=== PATIENT | female | born 1980 | race African-American/Black ===

== ENCOUNTER 2017-01-30 12:16 | Emergency (ER) | payer BC, OTHER ==
[~2017-01-30] VITALS: Ht 182.9 cm; Wt 113.4 kg
[~2017-01-30 12:16] MED LIST: NKM
[2017-01-30 12:45] VITALS: BP 113/65
--- NOTE | 2017-01-30 13:15 | Emergency Room Report ---
History of Present Illness General Chief Complaint: Pain Source: Patient Present Illness HPI 36-year-old female presents to emergency Department complaining of 9/10 in severity localized pain, swelling and instability of the right knee. Patient denies fall states she had a history of meniscal surgery and when she was getting up from sitting position felt a pop in the knee and had sharp pain and was knee was "stuck" pt states pain is exacerbated with bending, and straightening the leg provides some relief. Patient currently has a knee wrap on to state that she has an appointment strategy specialist on Saturday. However she wants to make sure she has enough anti-inflammatory medications to keep the swelling down. Patient also wants evaluation for major injury. Denies numbness tingling or loss of sensation or gross motor movements of the extremities, incontinence of bowel or bladder. Denies CP, Palpitations, LOC, AMS , dizziness, Changes in Vision, Sensation, paresthesias, or a sudden severe headache. Allergies: Coded Allergies: No Known Allergies (Unverified , 06/29/16) Patient History Past Medical History: see triage record Past Surgical History: none Pertinent Family History: none Last Menstrual Period: a week ago Now: No Immunizations: UTD Reviewed Nursing Documentation: PMH: Agreed, PSxH: Agreed Nursing Documentation-PMH Past Medical History: No History, Except For History Of Psychiatric Problem: Yes - Anxiety Review of Systems All Other Systems: negative except mentioned in HPI Physical Exam Vital Signs Date Time Temp Pulse Resp B/P Pulse Ox O2 Delivery O2 Flow Rate FiO2 01/30/17 12:45 98.8 16 113/65 100 Room Air 01/30/17 12:45 93 Sp02 EP Interpretation: reviewed, normal General Appearance: no apparent distress, alert, GCS 15, non-toxic Head: normocephalic, atraumatic Eyes: bilateral eye PERRL, bilateral eye normal inspection ENT: hearing grossly normal, normal pharynx, no angioedema, normal voice Neck: full range of motion, supple/symm/no masses Respiratory: chest non-tender, lungs clear, normal breath sounds, speaking full sentences Cardiovascular #1: regular rate, rhythm, no edema Rectal: deferred Musculoskeletal: back normal, normal range of motion, no calf tenderness, swelling - right lateral knee swelling., tender - anterior lateral righ tknee ttp, with palpable swelling, negative anterior and posterior drawer sign, no increased laxity of the joint however exam is limited due to pain. Neurologic: alert, oriented x3, responsive, motor strength/tone normal, sensory intact, speech normal Psychiatric: judgement/insight normal, memory normal, mood/affect normal, no suicidal/homicidal ideation Skin: normal color, no rash, warm/dry, well hydrated Medical Decision Making PA Attestation Dr. Simpson is my supervising Physician whom patient management has been discussed with. Diagnostic Impression: Primary Impression: Knee effusion, right Additional Impression: Right knee sprain Qualified Codes: S83.91XA - Sprain of unspecified site of right knee, initial encounter ER Course 36-year-old female presents to emergency Department complaining of 9/10 in severity localized pain, swelling and instability of the right knee. Patient denies fall states she had a history of meniscal surgery and when she was getting up from sitting position felt a pop in the knee and had sharp pain and was unable to bear weight. Patient currently has a knee wrap on to state that she has an appointment strategy specialist on Saturday. However she wants to make sure she has enough anti-inflammatory medications to keep the swelling down. Patient also wants evaluation for major injury. Ddx considered but are not limited to Fracture, dislocation, contusion, Sprain/ Strain/Spasm, Epidural abscess, Neoplastic mets. Vital signs: are WNL, pt. is afebrile H&PE are most consistent with knee effusion, and sprain. ORDERS: - X-ray Right Knee 3 views - negative for fx, Dislocation, or significant soft tissue injury, per preliminary read in ED by Dr. Simpson ED INTERVENTIONS: - 600mg IBU PO -Knee immobilizer Splint applied to the right knee by mold tooling technician. Pt. remains neurovascularly intact. - Pt. is provided with crutches. - pt has appt. on Saturday with strategy specialist , d/w pt. MRI is recommended. DISCHARGE: At this time pt. is stable for d/c to home. Will provide printed patient care instructions, and any necessary prescriptions. Care plan and follow up instructions have been discussed with the patient prior to discharge. Last Vital Signs Date Time Temp Pulse Resp B/P Pulse Ox O2 Delivery O2 Flow Rate FiO2 01/30/17 12:45 98.8 93 16 113/65 100 Room Air Disposition: HOME, SELF-CARE Condition: Stable Scripts Meloxicam* (MELOXICAM*) 15 Mg Tablet 15 MG PO DAILY for 15 Days, #15 TAB Prov: Elizabeth Bruce 01/30/17 Departure Forms: Return to Work Return to Work Date: Feb 05, 2017 Work Restrictions: No Heavy Lifting, No Prolonged Standing, Desk Work Only Return to Full Activity: Feb 12, 2017 Patient Instructions: Knee Effusion, [id number], Knee Sprain, [id number] Additional Instructions: Take medications as directed. Follow up with PCP in 3-5 days , Recommend aircraft structural repair mechanic follow up Return sooner to ED if new symptoms occur, or current symptoms become worse. Do not drink alcohol, drive, or operate heavy machinery while taking as this may cause drowsiness. - Please note that this Emergency Department Report was dictated using [employer] technology software, occasionally this can lead to erroneous entry secondary to interpretation by the dictation equipment. Elizabeth Bruce Jan 30, 2017 13:15
[2017-01-30] MEDS ORDERED: MELOXICAM15 MG PO (14:03)
[2017-01-30 14:45] VITALS: BP 113/65
--- NOTE | 2017-01-30 15:57 | Diagnostic Imaging Report ---
Indication: PAIN Technique: 3 views of the right knee Comparison: None Findings:On the AP view, a small ossific density projects in the intercondylar notch, not definitely visible on other images. There is a very questionable osteochondral defect of the medial femoral condyle immediately adjacent to this, but this is not for certain. No other evidence of fracture. No dislocation. No suprapatellar effusion Impression:Findings concerning for small osteochondral fracture fragment,, of uncertain origin. MRI may be useful to clarify if clinically indicated Findings discussed by phone with Dr. Hayward in the emergency room at the time of interpretation
== END 2017-01-30 14:45 | disposition home or self-care (01) ==
LOC: EMR 13:18
DX: M25.461 Effusion, right knee (principal); S83.91XA Sprain of unspecified site of right knee, initial encounter; X58.XXXA Exposure to other specified factors, initial encounter; Y93.9 Activity, unspecified; Y92.9 Unspecified place or not applicable
CPT/HCPCS: 29530; 99283

== ENCOUNTER 2020-04-16 21:08 | Emergency (ER) | payer BC, OTHER ==
[~2020-04-16] VITALS: Ht 180.3 cm; Wt 127.0 kg
[~2020-04-16 21:08] MED LIST changes: +MELOXICAM15 MG PO
[2020-04-16 21:35] VITALS: BP 119/60
[2020-04-16 21:57] LABS: EOSINOPHILS % (AUTO) 0.4 % (0.0-3.0); HEMATOCRIT 28.8 % (37.0-47.0); HEMOGLOBIN 8.2 G/DL (12.0-16.0); LYMPHOCYTES % (AUTO) 32.7 % (20.0-45.0); MEAN CORPUSCULAR VOLUME 64 FL (80-99); MONOCYTES % (AUTO) 7.5 % (1.0-10.0); NEUTROPHILS % (AUTO) 58.4 % (45.0-75.0); PLATELET COUNT 355 K/UL (150-450); RED BLOOD COUNT 4.53 M/UL (4.20-5.40); RED CELL DISTRIBUTION WIDTH 18.3 % (11.6-14.8); WHITE BLOOD COUNT 8.1 K/UL (4.8-10.8)
[2020-04-16 22:04] LABS: ANION GAP 10 mmol/L (5-15); BLOOD UREA NITROGEN 10 mg/dL (7-18); CALCIUM 8.8 MG/DL (8.5-10.1); CARBON DIOXIDE 26 MMOL/L (21-32); CHLORIDE 103 MMOL/L (98-107); CREATININE 1.5 MG/DL (0.55-1.30); POTASSIUM 3.6 MMOL/L (3.5-5.1); SODIUM 139 MMOL/L (136-145)
--- NOTE | 2020-04-16 22:04 | Diagnostic Imaging Report ---
EXAM: XR Chest, 1 View CLINICAL HISTORY: CP TECHNIQUE: Frontal view of the chest. COMPARISON: 06/29/2016 FINDINGS: Lungs: Unremarkable. No consolidation. Pleural space: Unremarkable. No pneumothorax. Heart: Unremarkable. No cardiomegaly. Mediastinum: Unremarkable. Bones/joints: Unremarkable. IMPRESSION: No acute cardiopulmonary disease.
[2020-04-16 22:14] LABS: ALANINE AMINOTRANSFERASE 14 U/L (12-78); ALBUMIN 3.8 G/DL (3.4-5.0); ALBUMIN/GLOBULIN RATIO 0.8 (1.0-2.7); ALKALINE PHOSPHATASE 78 U/L (46-116); ASPARTATE AMINO TRANSFERASE 17 U/L (15-37); BILIRUBIN,TOTAL 0.2 MG/DL (0.2-1.0)
--- NOTE | 2020-04-16 22:15 | Emergency Room Report ---
History of Present Illness General Chief Complaint: Chest Pain Source: Patient Present Illness HPI Is a 39-year-old female with a history of anxiety but not take any medication. She presents with chief complaint of chest discomfort/pain for last 2 to 3 months. Usually right-sided and epigastric area. Tachycardia tightness muscle type of soreness. No fever chills. Worse with exertion. [place] tired when she try to work out. No nausea no vomiting. No diaphoresis. No radiation. She does have a family history of cardiac disease with congestive heart failure in her family. Allergies: Coded Allergies: No Known Allergies (Unverified , 06/29/16) COVID-19 Screening Contact w/high risk pt: No Recent Travel to affected area: No Experienced COVID-19 symptoms?: No COVID-19 Testing performed CORN GRINDER: No Patient History Past Medical History: see triage record, old chart reviewed Past Surgical History: none Pertinent Family History: none Social History: Denies: smoking Last Menstrual Period: 03/2020 Now: No Immunizations: other Reviewed Nursing Documentation: PMH: Agreed; PSxH: Agreed Review of Systems Eye: Denies: eye pain, blurred vision ENT: Denies: ear pain, nose congestion, throat swelling Respiratory: Denies: cough, shortness of breath Cardiovascular: Reports: chest pain; Denies: palpitations Gastrointestinal: Denies: abdominal pain, diarrhea, nausea, vomiting Musculoskeletal: Denies: back pain, joint pain Skin: Denies: rash Neurological: Denies: headache, numbness Endocrine: Denies: increased thirst, increased urine Hematologic/Lymphatic: Denies: easy bruising All Other Systems: negative except mentioned in HPI Physical Exam Vital Signs Date Time Temp Pulse Resp B/P (MAP) Pulse Ox O2 Delivery O2 Flow Rate FiO2 04/16/20 21:13 98.6 100 16 130/82 (98) 100 04/16/20 21:25 Room Air Vitals unremarkable Sp02 EP Interpretation: reviewed, normal General Appearance: well appearing, no apparent distress, alert, obese Head: normocephalic, atraumatic Eyes: bilateral eye PERRL, bilateral eye EOMI ENT: hearing grossly normal, normal pharynx Neck: full range of motion, supple, no meningismus Respiratory: chest non-tender, lungs clear, normal breath sounds Cardiovascular #1: regular rate, rhythm, no murmur Gastrointestinal: normal bowel sounds, non tender, no mass, no organomegaly, no bruit, non-distended Musculoskeletal: back normal, normal range of motion, gait/station normal Psychiatric: mood/affect normal Medical Decision Making Diagnostic Impression: Primary Impression: Chest pain Qualified Codes: R07.9 - Chest pain, unspecified Additional Impression: Anemia, iron deficiency Qualified Codes: D50.0 - Iron deficiency anemia secondary to blood loss ( chronic) ER Course Patient presents with atypical chest pain. Most likely secondary to anemia. No evidence of ACS, PE, dissection. This is a chronic problem going on for months. EKG Diagnostic Results Rate: normal Rhythm: NSR ST Segments: no acute changes Rhythm Strip Diag. Results EP Interpretation: yes Rate: 87 Rhythm: NSR, no PVC's, no ectopy Chest X-Ray Diagnostic Results Chest X-Ray Diagnostic Results : Chest X-Ray Ordered: Yes # of Views/Limited/Complete: 1 View Indication: Chest Pain EP Interpretation: Yes Interpretation: no consolidation, no effusion, no pneumothorax, no acute cardiopulmonary disease Impression: No acute disease Electronically Signed by: Jose Jay MD Last Vital Signs Date Time Temp Pulse Resp B/P (MAP) Pulse Ox O2 Delivery O2 Flow Rate FiO2 04/16/20 21:35 98.6 92 13 119/60 100 Room Air Status: improved Disposition: HOME, SELF-CARE Condition: Stable Scripts [[id number]] No Conflict Check 1 TAB ORAL DAILY, #100 TAB Prov: Jose Jay MD 04/16/20 Referrals: NON PHYSICIAN (PCP) Patient Instructions: Nonspecific Chest Pain Additional Instructions: Follow-up with your doctor in 7 days. You may need a referral to see data technician for cardiac stress test. Return if symptoms worsen. Jose Jay MD Apr 16, 2020 22:15
[2020-04-16] MEDS ORDERED: [UNRECOGNIZED DRUG - CODE] ORAL (22:45)
[2020-04-16 22:55] VITALS: BP 125/72
== END 2020-04-16 22:55 | disposition home or self-care (01) ==
LOC: EMR 21:37
DX: R07.9 Chest pain, unspecified (principal); D50.0 Iron deficiency anemia secondary to blood loss (chronic); F41.9 Anxiety disorder, unspecified; E66.9 Obesity, unspecified; Z68.39 Body mass index [BMI] 39.0-39.9, adult
CPT/HCPCS: 36415; 71045; 80053; 83735; 83880; 84484; 84703; 85025; 85379; 85610; 85730; 93005; Z7502; 99284

== ENCOUNTER 2021-01-26 11:51 | Emergency (ER) | payer OTHER ==
[~2021-01-26] VITALS: Ht 182.9 cm; Wt 122.5 kg
[~2021-01-26 11:51] MED LIST changes: +[UNRECOGNIZED DRUG - CODE] ORAL
--- NOTE | 2021-01-26 12:23 | Emergency Room Report ---
History of Present Illness General Chief Complaint: Numbness Source: Patient Present Illness HPI 40-year-old female presents with left leg numbness and tingling in the inner portion, left gluteal tightness, no weakness, ongoing for the past 24 hours patient just got off a flight from [place] she was sitting for prolonged period of time she states she is 6 foot, denies taking any control no chest pain or shortness of breath patient presents for evaluation treatment she denies any aggravating or alleviating factors severity is mild Allergies: Coded Allergies: No Known Allergies (Unverified , 06/29/16) COVID-19 Screening Contact w/high risk pt: No Recent Travel to affected area: No Experienced COVID-19 symptoms?: No Patient History Past Medical History: see triage record Social History: Reports: alcohol use - Social Reviewed Nursing Documentation: PMH: Agreed; PSxH: Agreed Review of Systems All Other Systems: negative except mentioned in HPI Physical Exam Not tachycardic General Appearance: well appearing, no apparent distress Head: normocephalic, atraumatic ENT: hearing grossly normal, normal voice Neck: full range of motion, supple Respiratory: no respiratory distress, speaking full sentences Musculoskeletal: no calf tenderness, tenderness - Left gluteus, other - 5 out of 5 strength plantar dorsiflexion, knee flexion extension, hip extension flexion, abduction and abduction, bilaterally, left leg reduced sensation on the inner calf Neurologic: alert, normal gait Psychiatric: mood/affect normal Skin: no rash Medical Decision Making Diagnostic Impression: Primary Impression: Numbness and tingling Additional Impression: Left leg paresthesias ER Course 40-year-old female most likely with gluteal tightness causing impingement on the sciatic nerve, doubt emergent pathology no midline back tenderness no history of IV drug use, patient strength completely intact gait intact, patient counseled on stretches strict return precautions discussed follow-up with PCP Doubt DVT, no Homans' sign no asymmetric calf swelling Disposition: HOME, SELF-CARE Condition: Stable Referrals: [facility],REFERRING (PCP) [facility] [place] [facility] Patient Instructions: Gluteal Strain, Gluteus Medius Syndrome With Rehab- [facility] Additional Instructions: The patient was provided with discharge instructions, notified to follow-up with a primary care doctor and or specialist in the next 24-48 hours, and to return to the ED if they have worsening of their symptoms. Please note that this report is being documented using [employer] technology. This can lead to erroneous entry secondary to incorrect interpretation by the dictating instrument. Hernandez Christina MD Jan 26, 2021 12:23
[2021-01-26 12:26] VITALS: BP 122/60
--- NOTE | 2021-01-26 12:28 | NUR ---
examined by dr easton discharged home with instruction
== END 2021-01-26 12:29 | disposition home or self-care (01) ==
LOC: EMR 12:06
DX: R20.0 Anesthesia of skin (principal); R20.2 Paresthesia of skin
CPT/HCPCS: 81025; Z7502; 99283